=== PATIENT | male | born 1965 ===

== ENCOUNTER 2021-02-03 09:13 | Outpatient (CLI) | payer OTHER ==
[2021-02-03 10:15] VITALS: BP 121/73; PULSE 81; TEMP 98.1
[2021-02-03 10:30] VITALS: BP 120/70; PULSE 79; TEMP 98.1
[2021-02-03] MEDS ORDERED: ZESTRIL 5MG5 MG PO (10:42)
[2021-02-03] MEDS ORDERED: TRICOR145 MG PO (10:44)
[2021-02-03 11:00] VITALS: BP 114/81; PULSE 79; TEMP 98.1
[2021-02-03 11:15] VITALS: BP 124/64; PULSE 80; TEMP 98.1
[2021-02-03 11:30] VITALS: BP 128/83; PULSE 77; TEMP 98.1
[2021-02-03 11:45] VITALS: BP 121/80; PULSE 76; TEMP 98.1
== END 2021-02-03 12:00 | disposition home or self-care (01) ==
LOC: EUO 09:13
DX: U07.1 COVID-19 (principal); E66.9 Obesity, unspecified
CPT/HCPCS: Q0244

== ENCOUNTER → 2021-06-12 | Outpatient (CLI) | payer OTHER ==
[~2021-06-12] MED LIST: TRICOR145 MG PO; ZESTRIL 5MG5 MG PO
== END ==
LOC: COL.RAD 07:38
DX: M16.12 Unilateral primary osteoarthritis, left hip (principal)
CPT/HCPCS: J3301; Q9967

== ENCOUNTER 2021-09-11 09:11 | Outpatient (RCR) | payer OTHER | END 2021-09-15 | disposition home or self-care (01) | LOC: WSPT | DX: M16.12 Unilateral primary osteoarthritis, left hip (principal) ==

== ENCOUNTER 2021-11-09 09:45 | Outpatient (RCR) | payer OTHER | END 2021-11-15 | disposition home or self-care (01) | LOC: WSPT | DX: M16.12 Unilateral primary osteoarthritis, left hip (principal) ==

== ENCOUNTER 2021-12-14 09:00 | Outpatient (RCR) | payer OTHER | END 2021-12-16 | disposition home or self-care (01) | LOC: WSPT | DX: Z01.818 Encounter for other preprocedural examination (principal); M16.12 Unilateral primary osteoarthritis, left hip; Z96.642 Presence of left artificial hip joint ==

== ENCOUNTER 2021-12-22 08:02 | Outpatient (RCR) | payer OTHER | END 2021-12-25 13:15 | disposition home or self-care (01) | LOC: WSPT 08:02 | DX: Z96.642 Presence of left artificial hip joint (principal) ==